=== PATIENT | male | born 2000 | race Asian ===

== ENCOUNTER → 2021-02-08 08:41 | Outpatient (BNVA) | payer OTHER, SELFPAY | PROVIDERS: Visit Provider Physician Assistant Medical | DX: S67.02XA Crushing injury of left thumb, initial encounter (principal); S60.112A Contusion of left thumb with damage to nail, initial encounter; W23.0XXA Caught, crushed, jammed, or pinched between moving objects, initial encounter | CPT/HCPCS: 73140; 99203 ==

== ENCOUNTER → 2021-02-14 13:18 | Outpatient (BNVA) | payer OTHER, SELFPAY | PROVIDERS: Visit Provider Physician Assistant Medical | DX: S67.02XD Crushing injury of left thumb, subsequent encounter (principal); S60.112D Contusion of left thumb with damage to nail, subsequent encounter; X58.XXXD Exposure to other specified factors, subsequent encounter | CPT/HCPCS: 99213 ==

== ENCOUNTER → 2021-03-15 10:49 | Outpatient (BNVA) | payer OTHER, SELFPAY | PROVIDERS: Visit Provider Physician Assistant Medical | DX: S67.02XD Crushing injury of left thumb, subsequent encounter (principal); S60.112D Contusion of left thumb with damage to nail, subsequent encounter; X58.XXXD Exposure to other specified factors, subsequent encounter | CPT/HCPCS: 99213 ==